=== PATIENT | female | born 1960 | race Caucasian/White ===

== ENCOUNTER 2019-02-10 17:31 | Emergency (ER) | payer OTHER ==
[~2019-02-10] VITALS: Ht 170.2 cm; Wt 104.3 kg
[2019-02-10] MEDS ORDERED: DILTIAZEM HCL90 MG PO (17:44)
[2019-02-10] MEDS ORDERED: TOPROL XL100 MG PO (17:44)
[2019-02-10] MEDS ORDERED: LIPITOR 20 MG T20 M1 PO (17:45)
[2019-02-10] MEDS ORDERED: SYNTHROID25 MC1 PO (17:45)
[2019-02-10 18:23] LABS: ABSOLUTE EOSINOPHILS 0.1 thou/uL (0.0-0.7); ABSOLUTE LYMPHOCYTES 1.9 thou/uL (0.8-5.3); ABSOLUTE MONOCYTES 0.5 thou/uL (0.0-1.2); ABSOLUTE NEUTROPHILS 5.4 thou/uL (1.6-8.1); BASOPHILS 0.5 %; EOSINOPHILS 1.6 %; HEMATOCRIT 44.2 % (37.0-47.0); HEMOGLOBIN 15.1 gm/dL (12.0-15.0); LYMPHOCYTES 23.9 %; MCH 31.9 pg (26.0-34.0); MCHC 34.2 g/dL (28.0-37.0); MCV 93.2 fL (80.0-100.0); MONOCYTES 6.5 %; MPV 8.4 fl. (7.2-11.1); NUCLEATED RBCS 0 /100WBC; PLATELET COUNT* 288 thou/uL (150-400); POLYS 67.5 %; RBC 4.74 mil/uL (4.20-5.00); RDW-CV 12.6 % (10.5-14.5); WBC 8.1 thou/uL (4.0-11.0)
[2019-02-10 18:40] LABS: ALBUMIN 3.9 g/dL (3.4-5.0); ALKALINE PHOSPHATASE 64 U/L (46-116); ANION GAP 9 mmol/L (7-16); BUN 18 mg/dL (7-18); CALCIUM 9.1 mg/dL (8.5-10.1); CHLORIDE 104 mmol/L (98-107); CO2 31 mmol/L (21-32); CREATININE 0.9 mg/dL (0.6-1.3); GLUCOSE 133 mg/dL (70-99); POTASSIUM 3.7 mmol/L (3.5-5.1); SGOT 40 U/L (15-37); SGPT 52 U/L (30-65); SODIUM 144 mmol/L (136-145); TOTAL BILIRUBIN 0.3 mg/dL (<0.1-1.0); TOTAL PROTEIN 7.6 g/dL (6.4-8.2); TROPONIN-I LEVEL <0.06 ng/mL (<0.06)
[2019-02-10] MEDS ORDERED: IBUPROFEN 800800 M1 PO (20:11)
[2019-02-10] MEDS ORDERED: NORCO 5-325 TA1 EACH PO (20:11)
[2019-02-10 20:36] VITALS: BP 131/71
--- NOTE | 2019-02-11 12:15 | EKG ---
[place] [address] ELECTROCARDIOGRAM REPORT Name: MADHAV CARRILLO Room: [facility]#: [id number] Admission: 02/10/19 Attend Phys: Discharge: 02/10/19 Date of : 60 Report #: [id number] THIS REPORT FOR: //name// [facility] ED Test Date: 2019-02-10 Test Time: 19:50:01 Pat Name: MADHAV CARRILLO Department: Room: Gender: F Corporate Compliance Director: OSVALDO : 1960 Requested By: Ary Pacheco Order Number: [id number] MD: Taiwo Gomez Measurements Intervals [place] Rate: 75 P: 7 OR: 177 QRS: -20 QRSD: 86 T: 19 QT: 387 QTc: 433 Interpretive Statements Sinus rhythm Abnormal R-wave progression, early transition Inferior infarct, old No previous ECG available for comparison Electronically Signed On 02-11-2019 12:14:58 CDT by Taiwo Gomez [email or web address] <ELECTRONICALLY SIGNED> By: Taiwo Gomez MD, [facility] 02/11/19 1214 D: [id number] Taiwo Gomez MD, FACC /EPI
== END 2019-02-10 20:36 | disposition home or self-care (01) ==
LOC: M.ERS 17:31
PROVIDERS: Physician Assistant
DX: S22.41XA Multiple fractures of ribs, right side, initial encounter for closed fracture (principal); S93.491A Sprain of other ligament of right ankle, initial encounter; M25.521 Pain in right elbow; M25.561 Pain in right knee; M25.511 Pain in right shoulder; E04.1 Nontoxic single thyroid nodule; I10 Essential (primary) hypertension; F31.9 Bipolar disorder, unspecified; Z91.040 Latex allergy status; Z91.048 Other nonmedicinal substance allergy status; Z88.5 Allergy status to narcotic agent; Z98.890 Other specified postprocedural states; Z90.711 Acquired absence of uterus with remaining cervical stump; V89.2XXA Person injured in unspecified motor-vehicle accident, traffic, initial encounter; Y92.89 Other specified places as the place of occurrence of the external cause; Y93.89 Activity, other specified; Y99.8 Other external cause status